=== PATIENT | male | born 1985 | race Hispanic/Latino ===

== ENCOUNTER 2018-08-07 22:36 | Emergency (ER) | payer OTHER ==
[2018-08-07 22:53] VITALS: RESP 20
[2018-08-07] MEDS ORDERED: Oxycodone/Acetaminophen 5/325 mg Tab PO ONE (23:09)
--- NOTE | 2018-08-07 23:15 | ED PDOC ---
Lower Extremity Pain/Injury Time Seen by Provider: 08/07/18 22:58 Chief Complaint (Nursing): Lower Extremity Problem/Injury Chief Complaint (Provider): right heel pain History Per: Patient History/Exam Limitations: no limitations Onset/Duration Of Symptoms: Hrs (1) Additional History Per: Patient Additional Complaint(s): 33 y/o male presents for evaluation of pain to right heel sustained prior to arrival. Patient states he was playing soccer and while running felt a "pop" in the back of his heel. Patient states he was able to put slight pressure on foot and then hopped to ED. Patient states pain radiates half way up to calf. Denies numbness/weakness right lower extremity, limitation of movement. No medication taken for relief thus far. Past Medical History Reviewed: Historical Data, Nursing Documentation, Vital Signs Vital Signs: Last Vital Signs Temp 98.9 F 08/07/18 22:49 Pulse 89 08/07/18 22:49 Resp 20 08/07/18 22:49 BP 126/68 08/07/18 22:49 Pulse Ox 98 08/07/18 22:49 - Medical History PMH: No Chronic Diseases - Surgical History Surgical History: No Surg Hx - Family History Family History: States: No Known Family Hx - Living Arrangements Living Arrangements: With Family - Home Medications Home Medications: Ambulatory Orders Medication Instructions Recorded Ibuprofen [Motrin Tab] 1 tab PO Q6 PRN #20 tab 08/08/18 traMADol [Ultram] 50 mg PO Q8 PRN #10 tab 08/08/18 - Allergies Allergies/Adverse Reactions: Allergies Allergy/AdvReac Type Severity Reaction Status Date / Time No Known Allergies Allergy Verified 08/07/18 22:48 Review of Systems ROS Statement: Except As Marked, All Systems Reviewed And Found Negative Musculoskeletal: Positive for: Foot Pain (right heel) Physical Exam - Reviewed Nursing Documentation Reviewed: Yes Vital Signs Reviewed: Yes - Physical Exam Appears: Positive for: Well, Non-toxic, Uncomfortable Pulses-Dorsalis Pedis (L): 2+ Pulses-Dorsalis Pedis (R): 2+ Pulses-Post. Tibialis (L): 2+ Pulses-Post. Tibialis (R): 2+ Extremity: Positive for: Normal ROM (tenderness right heel with dorsiflexion), Deformity (No palpable tendon at insertion of achilles attachment site. Tender to palpate up mid calf; no ecchymosis, edema noted. + right Neumann test) Neurologic/Psych: Positive for: Alert, Oriented. Negative for: Motor/Sensory Deficits - ECG O2 Sat by Pulse Oximetry: 98 - Other Rad xray right ankle X-Ray: Viewed By Me X-Ray Interpretation: no acute fracture/dislocation - Progress ED Course And Treament: percocet, ibuprofen, xray Patient evaluated by podiatry resident on-call; placed in rand compression dressing/posterior splint Advised nonweight bearing on crutches. Will obtain outpatient MRI. Follow up with Dr. Guy Patient given rx tramadol, ibuprofen Advised RICE Follow up podiatry Return precautions given Disposition - Clinical Impression Clinical Impression: Injury of right Achilles tendon - Patient ED Disposition Is Patient to be Admitted: No Counseled Patient/Family Regarding: Studies Performed, Diagnosis, Need For Followup, Rx Given - Disposition Referrals: Tomy Guy DPM [[facility]] - Disposition: Routine/Home Disposition Time: 00:23 Condition: STABLE Prescriptions: Ibuprofen [Motrin Tab] 1 tab PO Q6 PRN #20 tab PRN Reason: Pain, Moderate (4-7) traMADol [Ultram] 50 mg PO Q8 PRN #10 tab PRN Reason: Pain, Severe (8-10) Instructions: Achilles Tendon Rupture Forms: [employer] (I[place]ic)
[2018-08-08 00:41] VITALS: BP 122/66; PULSE 81; TEMP 98.4; O2SAT 99
--- NOTE | 2018-08-08 07:50 | CP.PCM.CON ---
History of Present Illness - History of Present Illness History of Present Illness: Podiatry Consult Note for Dr. Guy: 33 yo male patient, with no significant PMHx, seen and evaluated, in the ED for right ankle pain. He states that he was playing soccer when he felt a "pop" in the back of the ankle. He immediately felt pain to his ankle and had pain while weightbearing. He then presented to the ED for further evaluation. Patient denies any other pedal complaints at this time. Patient denies N/V/F/SOB/CP. PMHx: denies PSHx: right shoulder surgery ALL: NKDA Review of Systems - Review of Systems Review of Systems: As per HPI Past Patient History - Past Social History Smoking Status: Never Smoked - PSYCHIATRIC Hx Substance Use: No - SURGICAL HISTORY Hx Surgeries: No Meds Home Medications: Home Medication List Medication Instructions Recorded Confirmed Type Ibuprofen [Motrin Tab] 1 tab PO Q6 PRN #20 tab 08/08/18 Rx traMADol [Ultram] 50 mg PO Q8 PRN #10 tab 08/08/18 Rx Allergies/Adverse Reactions: Allergies Allergy/AdvReac Type Severity Reaction Status Date / Time No Known Allergies Allergy Verified 08/07/18 22:48 Physical Exam - Constitutional Appears: Well, Non-toxic, No Acute Distress - Head Exam Head Exam: ATRAUMATIC, NORMOCEPHALIC - Extremities Exam Additional comments: RLE Focused exam Vasc: 2/4 DP/PT, CFT <3 seconds, TG WNL, mild edema noted to inferior 1/3 of leg posteriorly Ortho: Pain upon palpation of R achilles tendon, pain upon palpation upon calf compression, patient able to wiggle toes. Patient unable to PF (tear vs. patient guarding), positive veloz test Neuro: Gross and protective sensation intact Derm: No open lesions, no erythema, no clinical signs of infection - Neurological Exam Neurological exam: Alert, Oriented x3 - Psychiatric Exam Psychiatric exam: Normal Affect, Normal Mood Results - Vital Signs Recent Vital Signs: Last Vital Signs Temp 98.4 F 08/08/18 00:40 Pulse 81 08/08/18 00:40 Resp 20 08/08/18 00:40 BP 122/66 08/08/18 00:40 Pulse Ox 99 08/08/18 00:40 Assessment & Plan - Assessment and Plan (Free Text) Assessment: 33 yo male patient, with no significant PMHx, seen and evaluated, in the ED for right achilles tendon rupture/tear Plan: Patient seen and evaluated Chart, labs, and vitals reviewed Patient plan discussed in detail with Dr. Malena Cardona ankle x-rays taken and reviewed; obliteration of [place] Patient placed in posterior splint and instructed to remain non-weightbearing Patient instructed to keep dressing C/D/I. Discussed with patient the need for surgical intervention at this time; will plan for outpatient MRI for surgical planning F/U in Dr. Starr office within 1 week Thank you for the consult. - Date & Time Date: 08/07/18 Time: 23:00
--- NOTE | 2018-08-08 09:37 | RAD ---
Date of service: 08/07/2018 PROCEDURE: Right Ankle Radiographs. HISTORY: posterior heel pain COMPARISON: None FINDINGS: BONES: Normal. No fracture. JOINTS: Normal. No osteoarthritis. Ankle mortise maintained. Talar dome intact SOFT TISSUES: Normal. OTHER FINDINGS: None. IMPRESSION: Normal right ankle radiographs.
== END 2018-08-08 00:30 | disposition home or self-care (01) ==
LOC: H.ER 22:36
DX: S86.001A Unspecified injury of right Achilles tendon, initial encounter (principal); X50.9XXA Other and unspecified overexertion or strenuous movements or postures, initial encounter; Y93.66 Activity, soccer